=== PATIENT | male | born 1995 | race Caucasian/White ===

== ENCOUNTER 2018-12-26 12:27 | Emergency (ER) | payer MEDICAID, OTHER ==
[~2018-12-26] VITALS: Ht 182.9 cm; Wt 155.0 kg
[2018-12-26] MEDS ORDERED: KETOROLAC 60MG/2ML VIAL IM ONE (16:30)
[2018-12-26 16:40] VITALS: BP 152/78
== END 2018-12-26 16:55 | disposition home or self-care (01) ==
LOC: ER 12:27
DX: H60.8X3 Other otitis externa, bilateral (principal); F12.10 Cannabis abuse, uncomplicated
CPT/HCPCS: 96372; 99283; J1885